=== PATIENT | male | born 1980 | race Caucasian/White ===

== ENCOUNTER 2022-06-02 00:46 | Emergency (ER) | payer OTHER ==
[~2022-06-02] VITALS: Ht 180.3 cm; Wt 75.5 kg
[2022-06-02 01:00] VITALS: BP 125/89
[2022-06-02] MEDS ORDERED: VISCOUS LIDOCAINE 2% 15 ML UDC MM STA (02:12)
[2022-06-02] MEDS ORDERED: BISACODYL 5MG TABLET PO PRN (02:15)
[2022-06-02] MEDS ORDERED: DOCU-138 MT (02:55)
== END 2022-06-02 03:29 | disposition home or self-care (01) ==
LOC: ER 00:46
DX: K59.00 Constipation, unspecified (principal); Z98.890 Other specified postprocedural states
CPT/HCPCS: 99282; Z7610